=== PATIENT | female | born 1940 | race Caucasian/White ===

== ENCOUNTER → 2016-06-30 | Outpatient (CLI) | payer OTHER ==
[~2016-06-30] MED LIST: ALEVE220 M1 PO; CALCIUM + D 6001 TA1 PO; OMEPRAZOLE40 M1 PO
== END | disposition home or self-care (01) ==
LOC: CECH 12:31
DX: R60.9 Edema, unspecified (principal); R06.00 Dyspnea, unspecified; R93.1 Abnormal findings on diagnostic imaging of heart and coronary circulation
CPT/HCPCS: 93306